=== PATIENT | female | born 1960 | race Caucasian/White ===

== ENCOUNTER → 2020-04-15 09:18 | Outpatient (BNVA) | payer OTHER, SELFPAY | PROVIDERS: PCP Student in an Organized Health Care Education/Training Program; Visit Provider Internal Medicine | DX: R07.2 Precordial pain (principal); I10 Essential (primary) hypertension; I49.3 Ventricular premature depolarization | CPT/HCPCS: 93005; 99202 ==

== ENCOUNTER → 2020-08-04 07:50 | Outpatient (REF) | payer OTHER, SELFPAY ==
--- NOTE | ~2020-08-04 | NM_ITS ---
Lexiscan Myocardial perfusion study Indication: Chest discomfort, assess for coronary disease and ischemia Technique: The patient was brought in for a Lexiscan perfusion study on 08/04/2020 and was injected 0.4 mg of Lexiscan intravenously. Within a minute of this injection 25 mCi of sestamibi was given intravenously. Images were obtained using the SPECT gamma camera interlaced with the gating device. Images were obtained in supine position. Resting perfusion study was performed on 08/05/2020. Patient was administered 25 mCi of sestamibi intravenously at rest. Images were then obtained in supine position. Total DLP 126mGy-cm. Images were processed with the software and compared side to side in short axis, horizontal long axis and vertical long axis views. Findings: Raw acquisition was reviewed. The stress perfusion study showed mildly diminished tracer uptake in the distal part of anterior wall. With CT attenuation correction, this is still persisting. The gated study shows normal LV systolic function with calculated LVEF of 62%. LV cavity is normal in size. The gated study shows normal wall thickening and contraction of segments. Resting study shows mildly diminished tracer uptake in the distal part of anterior wall. Similar appearance in the CT attenuation corrected images. Gating at rest reveals normal wall motion with ejection fraction at > 77%. The findings are consistent with no reversible defects. Mild fixed defect in the distal anterior wall suspected to be from soft tissue attenuation. NM/NM cardiolite stress test Impression: 1. Myocardial perfusion imaging study shows likely normal myocardial perfusion. No definitive evidence of any ischemia or infarction. 2. Gated LVEF is 62% during stress and > 70% during rest. 3. Transient ischemic dilatation not present. EKG component of the test reported separately.
--- NOTE | 2020-08-04 08:30 | CA_ITS ---
Acquisition Time: 2020-08-04 08:03:04 Total Exercise Time: 00:03:06 Test Indications: Dyspnea Medications: ASA LISINOPRIL Protocol: MAYITO Max HR: 136 BPM 85% of Pred: 159 BPM Max BP: 134/080 mmHG Max Work Load: 4.7 METS Exercise stress test with exercise 3 min 6 sec of Mayito protocol, without anginal symptoms, with knee pain and request to slow exercise. Treadmill placed in recovery and slowed to 1 MPH. Test changed to pharmacological stress test with Lexiscan injection, without anginal symptoms, with isolated PAC and PVC, with inverted P waves post injection, with normotensive response to injection, with nondiagnostic EKG for ischemia. In recovery she reported shortness of breath that was treated with Aminophylline 75mg IVP to reverse Lexiscan with improvement in symptom. Nuclear images pending. Test reviewed with Dr Rosario. Referred By: Charly Cruz Overread By: TAMMY PENA
== END ==
LOC: HO.CARD 07:50
PROVIDERS: Visit Provider Internal Medicine
DX: R07.2 Precordial pain (principal); R06.02 Shortness of breath
CPT/HCPCS: 78452; 93017; A9500; J0280; J2785

== ENCOUNTER → 2020-10-20 08:41 | Outpatient (BNVA) | payer OTHER, SELFPAY | PROVIDERS: PCP Student in an Organized Health Care Education/Training Program; Visit Provider Internal Medicine | DX: I49.3 Ventricular premature depolarization (principal); I10 Essential (primary) hypertension; R07.2 Precordial pain | CPT/HCPCS: 99212 ==

== ENCOUNTER 2020-12-29 08:19 | Outpatient (REF) | payer OTHER, SELFPAY ==
--- NOTE | ~2020-12-29 | XR_ITS ---
EXAMINATION: XR KNEES, STANDING AP XR KNEE, LEFT CLINICAL INFORMATION: M25.562 - Pain in left knee COMPARISON: Standing AP knees 12/11/2018, right knee 12/11/2018. TECHNIQUE: Standing AP knees is performed along with lateral view and axial patella view left knee. FINDINGS: Left: No fracture or dislocation or destructive process. There is borderline narrowing medial compartment. No erosive change or chondrocalcinosis. There is moderate suprapatellar effusion. Mild edema suggested in Hoffa's fat pad with poorly defined infrapatellar fat pad. Axial view shows no patellofemoral joint narrowing or lateralization left patella. Right: No fracture or dislocation or destructive process. There is mild narrowing medial compartment with marginal osteophytes femoral condyle and tibial plateau. Narrowing greater than that on the left. No erosive change or chondrocalcinosis. XR/XR knee standing BI IMPRESSION: Left: Mild narrowing medial compartment. Moderate suprapatellar effusion. Edema Hoffa's fat pad. Right: Narrowing medial compartment greater than that on left. No erosive change.
--- NOTE | ~2020-12-29 | XR_ITS ---
EXAMINATION: XR KNEES, STANDING AP XR KNEE, LEFT CLINICAL INFORMATION: M25.562 - Pain in left knee COMPARISON: Standing AP knees 12/11/2018, right knee 12/11/2018. TECHNIQUE: Standing AP knees is performed along with lateral view and axial patella view left knee. FINDINGS: Left: No fracture or dislocation or destructive process. There is borderline narrowing medial compartment. No erosive change or chondrocalcinosis. There is moderate suprapatellar effusion. Mild edema suggested in Hoffa's fat pad with poorly defined infrapatellar fat pad. Axial view shows no patellofemoral joint narrowing or lateralization left patella. Right: No fracture or dislocation or destructive process. There is mild narrowing medial compartment with marginal osteophytes femoral condyle and tibial plateau. Narrowing greater than that on the left. No erosive change or chondrocalcinosis. XR/XR knee LT 2V IMPRESSION: Left: Mild narrowing medial compartment. Moderate suprapatellar effusion. Edema Hoffa's fat pad. Right: Narrowing medial compartment greater than that on left. No erosive change.
== END 2020-12-29 08:20 | disposition home or self-care (01) ==
LOC: HO.HOSX 08:19
PROVIDERS: Visit Provider Physician Assistant
DX: M17.12 Unilateral primary osteoarthritis, left knee (principal); M25.561 Pain in right knee; M25.462 Effusion, left knee
CPT/HCPCS: 20610; 73560; 73565; 99212; J1100

== ENCOUNTER 2021-01-26 10:00 | Outpatient (RCR) | payer OTHER, SELFPAY ==
--- NOTE | 2020-12-31 13:02 | MHC.PT.EP ---
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 REPORTS LONG HX OF KNEE PAIN WITH INCREASEING PAIN OVER LAST FEW MONTHS. Pt PRESENTS TO PT WITHOUT AD WITHOUT SIGNIF LIMP. SOME DECREASED END RANGE KNEE FLEXION B WITH PAIN REPORTED IN KNEE JTS. Pt HAD L KNEE ASPIRATED WITH INJECTION WHILE AT [facility] WITH REPORT OF RELIEF. 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 SHE DOES NOT DRIVE. SHOULD BENEFIT FROM PT TO HELP INCREASE LE STRENGTH AND FLEXIBILITY TO HELP ALLEVIATE PAIN. Pt REPORTS RELIEF WITH KT Frequency and Duration: The patient will be seen 2X/WK X 4 WKS Short Term Goals: 1. INCREASED AWARENESS KNEE CARE 2. I HEP WITH DC EX PLAN Custodial Goals: 1. INCREASED KNEE FLEX 5 DEGREES B 2. DECREASED KNEE PAIN AT LEAST 50% WITH ADLS Treatment Plan: Modalities to reduce pain, spasms and effusion. Manual therapy to restore motion and function. Therapeutic exercise to improve strength and flexibility. Neuromuscular re-education for posture and balance. Therapeutic activities to return to functional activities of daily living. Electronically signed by: SANDRA RODRIGUEZ PT Please sign and return to therapist. Thank you for your referral.
--- NOTE | 2021-02-11 14:14 | MHC.PT.DC ---
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 PER ASSESSMENT BY GUSTAVO PEACOCK PT ON THAT DATE:'Pt reports relief with ice and stated is feeling good about I HEP. Stated going away on vacation ? today - being last day' Electronically signed by: SANDRA RODRIGUEZ PT Please sign and return to therapist. Thank you for your referral.
== END 2021-02-11 14:15 | disposition home or self-care (01) ==
LOC: HO.PTWFD 10:00
PROVIDERS: PCP Student in an Organized Health Care Education/Training Program; Visit Provider Orthopaedic Surgery
DX: M25.462 Effusion, left knee (principal); M17.12 Unilateral primary osteoarthritis, left knee
CPT/HCPCS: 97014; 97110; 97116; 97140; 97162; 97530; 97535

== ENCOUNTER 2022-04-10 07:48 | Emergency (ER) | payer OTHER, SELFPAY ==
--- NOTE | ~2022-04-10 | CT_ITS ---
EXAMINATION: CT ABDOMEN AND PELVIS WITHOUT CONTRAST CLINICAL INFORMATION: Question kidney stone COMPARISON: None TECHNIQUE: Multidetector volumetric imaging was performed from the superior aspect of the liver through the pubic symphysis. Sagittal and coronal reformatted images were obtained on the technologist's workstation. This CT examination was performed using dose optimization techniques as appropriate, variously including the following: *Automated exposure control *Adjustment of mA and/or kV according to patient size (this includes techniques or standardized protocols for targeted exams where dose is matched to indication/reason for exam; i.e. extremities or head) *Use of iterative reconstruction technique DLP: 598 mGy-cm FINDINGS: Visualized lung bases demonstrate mild dependent atelectasis. The liver is normal in size but demonstrates diffusely decreased attenuation. The gallbladder is normal in appearance. The pancreas and adrenal glands are normal in appearance. Small calcified granuloma within the spleen. Symmetrically sized kidneys. No renal calculi or hydronephrosis of either kidney. Tiny hiatal hernia. Normal caliber loops of small and large bowel. Normal caliber abdominal aorta. No retroperitoneal lymphadenopathy. The bladder is normal in appearance. Unremarkable CT appearance of the uterus. No gross free pelvic fluid. No inguinal lymphadenopathy. Mild diffuse degenerative changes of the spine. Partially visualized lipoma within the right tensor fasciae latae muscle. CT/CT abdomen pelvis wo IV con IMPRESSION: 1. No renal calculi or hydronephrosis of either kidney. 2. Diffusely decreased liver attenuation suggesting hepatic steatosis. Correlation with liver enzymes recommended. Fleischner guidelines were followed.
--- NOTE | ~2022-04-10 | XR_ITS ---
EXAMINATION: XR LUMBOSACRAL SPINE WITH OBLIQUES CLINICAL INFORMATION: Atraumatic low back pain for 3 to 4 days. COMPARISON: None TECHNIQUE: 5 views of the lumbar spine were obtained. FINDINGS: 5 nonrib-bearing lumbar vertebral bodies are visualized. Normal alignment. Lumbar vertebral body heights are maintained. There is mild to moderate narrowing of the L5/S1 disc space height. Tiny osteophytes are scattered throughout the lumbar spine. Mild degenerative changes of the posterior elements of the lower lumbar spine. Sacroiliac joints are symmetric. 3 mm nodular density projecting over the left renal shadow possibly represents a left renal calculus. XR/XR lumbar spine 4V min IMPRESSION: 1. Mild degenerative changes of the lower lumbar spine. No compression deformity. 2. Possible 3 mm left renal calculus.
[2022-04-10 07:56] VITALS: BP 159/86; PULSE 77; RESP 18; TEMP 35.8; O2SAT 96; BMI 34.0
--- NOTE | 2022-04-10 08:13 | ED_ITS ---
HPI - Back Pain/Injury General Chief Complaint: Back Pain/Injury Stated Complaint: back pain Time Seen by Provider: 04/10/22 08:01 Source: patient and family ( and daughter) Mode of arrival: ambulatory Limitations: language barrier (Spanish-speaking pediatrics hospitalist used) History of Present Illness HPI Narrative: 61yoF who is Spanish-speaking pediatrics hospitalist used with a PMHx of HTN, PVCs and arthritis who is presenting to the ER with her and daughter with complaints of atraumatic lower back pain for the past 3-4 days worse today. She reports she has had back pain in the past and this feels similar to her back pain. Reports it is worse when she is laying down at night and trying to get out of bed. She denies any recent falls or trauma, any dizziness, changes in vision, jaw pain, chest pain or shortness of breath, palpitations, paresthesias, abdominal pain, flank pain, dysuria, hematuria, abnormal vaginal discharge, black or bloody stools, urinary bowel incontinence or retention, rashes, saddle anesthesias, radiation of the back pain or any other symptoms complaints or concerns at this time. MD elicited complaint: back pain Pertinent past history: prior back pain Onset (ago): day(s) (3-4 days ) Timing: constant Severity: mild Similar Symptoms Previously: Yes Quality: other (Cramping sensation) Location: lumbar spine Radiation: none Exacerbating factors: movement, supine positioning, walking and lifting Relieving factors: none Context: unknown Associated symptoms: denies other symptoms Work related injury: No Related Data Home Medications Medication Instructions Recorded Confirmed aspirin 81 mg tablet,delayed 81 mg PO DAILY 04/15/20 10/20/20 release lisinopril 40 mg tablet 40 mg PO DAILY 04/15/20 10/20/20 Previous Rx's Medication Instructions Recorded cyclobenzaprine 10 mg tablet 10 mg PO Q8H Muscle strain of back 04/10/22 #14 tabs naproxen 500 mg tablet 500 mg PO BID PRN pain #14 tabs 04/10/22 Allergies Allergy/AdvReac Type Severity Reaction Status Date / Time No Known Allergies Allergy Verified 10/20/20 08:56 [No Known Allergies*] Review of Systems Review of Systems: Constitutional : No trauma, No Weight loss, No Fever, No Chills, ENT/Mouth : No Hearing loss, No Ear Pain, No Nasal Congestion, No Sinus Pain, No Hoarseness, No sore throat, No Rhinorrhea, No Swallowing Difficulty Cardiovascular : No Chest Pain, No SOB Respiratory : No Cough, No Dyspnea Gastrointestinal : No Nausea, No Vomiting, No Diarrhea, No abdominal Pain, No Hematochezia, No Melena Genitourinary : No Dysuria, No Urinary Frequency, No Hematuria, No Urinary or Bowel Incontinence/retention Musculoskeletal : + Back pain, No neck pain, No joint stiffness, No joint swelling Skin : No Skin Lesions, No rash or signs of infection Neuro : No Weakness, No radiation, No Numbness, No Paresthesias, No headache, no loss of bowel or bladder incontinence, no saddle anesthesia Denies history of IV drug usage. Yes all other systems are reviewed and are negative [facility] Past Medical History Attestation statement: The following information was validated with the patient. Source: old records reviewed, obtained from family and nursing notes reviewed Medical History Essential hypertension Surgical History No pertinent past surgical history Family History Family History Father No problems noted. Mother No problems noted. Social History Social History Patient Tobacco Use Status: Never used Tobacco Advance Directives: No Advance Directives Information Provided: Yes Physical Exam Vital Signs: Vital Signs: Last Vital Signs Temp 96.5 F L 04/10/22 07:56 Pulse 77 04/10/22 07:56 Resp 18 04/10/22 07:56 BP 159/86 H 04/10/22 07:56 Pulse Ox 96 04/10/22 07:56 O2 Del Method Simple Mask 04/10/22 07:56 BMI result Body Mass Index 34.0 vital signs have been reviewed as normal and appeared to be correct. Blood pressure 159/86. Heart rate normal. Respiration rate normal. Temperature normal. Oxygen saturation normal. Appearance: Alert. Oriented X3. No acute distress. Head: Normal external exam. Normocephalic. Atraumatic. No [place] signs noted. No raccoon eyes noted Eyes: PERRLA. EOMI. Conjunctiva and sclera normal. Eyelids normal. ENT: EAC normal. TM's Normal. Pharynx normal. Uvula midline. Moist mucous membranes. No trismus noted. No drooling noted. No muffled voice noted. Neck: Normal inspection. Neck supple. FROM. No adenopathy. Thyroid Normal. No meningeal signs. No neck mass noted. CVS: Normal heart rate and rhythm. Heart sound normal. No murmurs noted. Pulses normal throughout. Respiratory: No respiratory distress. Painless inspiration. Breath sounds normal. No wheezes/rales/rhonchi noted. Chest nontender. No accessory muscle usage noted or decreased air movement noted. Abdomen: Soft and nontender. Bowel sounds normal in all 4 quadrants. No distention noted. No organomegaly noted. No visible injury noted. Back: No CVA tenderness. Full range of motion noted. No obvious deformities, or edema. Mild para-spinal muscular tenderness from lumbar region to coccyx. Full ROM in back and lower extremities. 5/5 strength hip extension/flexion, abduction, adduction. Mild Lumbar pain with hip flexion against resistance. Straight leg raise test negative on right; Straight leg raise test negative on left; Reflexes normal ankle and knee bilaterally; EHL motor strength normal bilaterally. No rashes/lesion/induration/fluctuance or signs infection noted. Skin: Skin warm and dry. Normal skin color. Normal skin turgor. No rashes/lesions/lacerations noted. Extremities: No lower extremity edema. Extremities exhibit normal range of motion. Extremities nontender. Neuro: Oriented X 3. No motor deficit. No sensory deficit. Reflexes normal. Patient has a normal steady gait. Course Course Course Narrative: Pt c likely muscular pain, but could be herniated disc. Neuro exam shows no defi cits. Not c/w AAA/epidural abscess/dissection.No high risk Hx (Incont, fever, immunosupp, recent surgery/LP, coag, signif trauma, wt loss, puls mass, hx/o Ca, TB, or IVDU) to warrant MRI/CT today. Not c/w Pyelo/UTI/kidney stone/spinal fx. Not cauda equina syndrome. Although will obtain x-ray of lower back and UA and re-evaluate. Reevaluation(s) Reevaluation #1: UA within normal limits no evidence of UTI. X-ray revealed degenerative changes of lumbar spine no compression deformity. Although they report possible 3 mm l eft renal calculus. Therefore at this time will obtain basic labs and obtain a CT scan abdomen pelv is without IV contrast and re-evaluate. Time: 08:55 Reevaluation #2: CT scan abdomen pelvis negative for any kidney stones. Revealed hepatic steatosis otherwise no other acute processes. Labs reviewed BUN 18. Random glucose 118. AST 46. ALT 72. Otherwise all other labs are within normal limits. Therefore patient most likely lumbar strain/muscular skeletal pain. Will DC home with muscle relaxants and symptomatic treatment instructions return if any new or worsening symptoms to follow up with primary care provider. Patient with daughter at bedside and understand agree this plan. Time: 10:17 Medical Decision Making Lab Data [facility] Lab Attestation statement: I reviewed the patient's lab results. 04/10/22 09:20 04/10/22 09:20 Labs: Lab Results 04/10/22 04/10/22 04/10/22 Range/Units 08:15 09:20 09:20 WBC 5.7 (4.8-10.8) X10*3/uL RBC 4.56 (4.20-5.50) X10*6/uL Hgb 14.1 (12.0-16.0) g/dl Hct 40.4 (37.0-47.0) % MCV 88.6 (80.0-98.0) fL MCH 30.9 (27.0-33.0) pg MCHC 34.9 (31.0-35.0) g/dl RDW 12.8 (11.0-16.0) % Plt Count 170 (160-400) X10*3/uL MPV 10.1 (9.4-12.3) fL Immature Gran % (Auto) 0.2 (0.0-0.4) % Neut % (Auto) 43.8 L (45-73) % Lymph % (Auto) 46.3 H (20-40) % Rush % (Auto) 7.8 (2-11) % Eos % (Auto) 1.7 (0-4) % Baso % (Auto) 0.2 (0-2) % Lymph # (Auto) 2.7 (1.2-4.9) X10*3/uL Rush # (Auto) 0.5 (0.1-1.2) X10*3/uL Eos # (Auto) 0.1 (0.0-0.4) X10*3/uL Baso # (Auto) 0.0 (0.0-0.2) X10*3/uL Abs Immat Gran (auto) 0.01 (0.00-0.03) X10*3/uL Absolute Neuts (auto) 2.5 (2.0-8.3) x10*3/uL Absolute Nucleated RBC 0.000 (0.0-0.012) X10*3/uL Nucleated RBC % (auto) 0.0 (0.0-0.2) /100WBC Sodium 141 (135-145) mmol/L Potassium 4.2 (3.3-5.1) mmol/L Chloride 107 (96-108) mmol/L Carbon Dioxide 26 (22-29) mmol/L Anion Gap 12 (12-20) BUN 18 H (9-16) mg/dL Creatinine 0.80 (0.5-1.4) mg/dL Estim Creat Clear Calc 66.9 Estimated GFR > 60 Random Glucose 118 H (60-115) mg/dL Calcium 9.2 (8.4-10.2) mg/dL Magnesium 2.2 (1.6-2.6) mg/dL Total Bilirubin 0.8 (0.0-1.0) mg/dL AST 46 H (5-31) U/L ALT 72 H (0-31) U/L Alkaline Phosphatase 80 (39-117) U/L Total Protein 6.8 (6.5-8.0) g/dL Albumin 3.9 (3.5-5.0) g/dL Urine Color Yellow Urine Appearance Clear Urine pH 7.0 (5.0-9.0) Ur Specific [place] <= 1.005 (1.005-1.025) Urine Protein Negative (Neg-Trace) mg/dL Urine Glucose (UA) Negative (Negative) mg/dL Urine Ketones Negative (Negative) mg/dL Urine Blood Negative (Negative) Urine Nitrite Negative (Negative) Ur Leukocyte Esterase Negative (Negative) Independent Interpretation I performed an independent interpretation of an: Plain X-Ray (I reviewed the lumbar spine x-ray I am agreeable with radiology results discussed this with patient and family at bedside) and CT Scan (I have reviewed the CT scan results discussed with family and I agreeable with the radiologist's report) Radiology Impression Discussion of test interpretation with radiology: I have reviewed the radiologist's reading. Radiologist Impression: EXAMINATION: XR LUMBOSACRAL SPINE WITH OBLIQUES CLINICAL INFORMATION: Atraumatic low back pain for 3 to 4 days.? COMPARISON: None? TECHNIQUE: 5 views of the lumbar spine were obtained.? FINDINGS: 5 nonrib-bearing lumbar vertebral bodies are visualized. Normal alignment. Lumbar vertebral body heights are maintained. There is mild to moderate narrowing of the L5/S1 disc space height. Tiny osteophytes are scattered throughout the lumbar spine. Mild degenerative changes of the posterior elements of the lower lumbar spine. Sacroiliac joints are symmetric. 3 mm nodular density projecting over the left renal shadow possibly represents a left renal calculus. XR/XR lumbar spine 4V min IMPRESSION: 1.? Mild degenerative changes of the lower lumbar spine. No compression deformity. 2.? Possible 3 mm left renal calculus. FINDINGS: Visualized lung bases demonstrate mild dependent atelectasis. The liver is normal in size but demonstrates diffusely decreased attenuation. The gallbladder is normal in appearance. The pancreas and adrenal glands are normal in appearance. Small calcified granuloma within the spleen. Symmetrically sized kidneys. No renal calculi or hydronephrosis of either kidney. Tiny hiatal hernia. Normal caliber loops of small and large bowel. Normal caliber abdominal aorta. No retroperitoneal lymphadenopathy. The bladder is normal in appearance. Unremarkable CT appearance of the uterus. No gross free pelvic fluid. No inguinal lymphadenopathy. Mild diffuse degenerative changes of the spine. Partially visualized lipoma within the right tensor fasciae latae muscle. CT/CT abdomen pelvis wo IV con IMPRESSION: 1.? No renal calculi or hydronephrosis of either kidney. 2.? Diffusely decreased liver attenuation suggesting hepatic steatosis. Correlation with liver enzymes recommended. ? Fleischner guidelines were followed. Independent Historian Clinical information obtained from an independent historian. History obtained from or confirmed by: Spouse (And daughter at bedside) External Record Review External record reviewed: Inpatient record, Office record, Outpatient record, Prior outpatient labs, Prior outpatient radiology, Primary care record and Outside ED record Are prior records that are in our system that is accessible reviewed by myself along with labs and imaging Prescription Management I considered prescription management with: Pain Medication (Will DC home with naproxen and Flexeril) Discharge Plan Discharge Clinical Impression: Strain of lumbar region Patient Disposition: Home, Self-Care Instructions: Muscle Strain (ED) Prescriptions: New naproxen 500 mg tablet 500 mg PO BID PRN (Reason: pain) Qty: 14 0RF cyclobenzaprine 10 mg tablet 10 mg PO Q8H Qty: 14 0RF No Action lisinopril 40 mg tablet 40 mg PO DAILY aspirin 81 mg tablet,delayed release (DR/EC) 81 mg PO DAILY Referrals: Kellen Murcia MD [Primary Care Provider] - 2 days
[2022-04-10 08:24] LABS: Appearance Urine Clear; Color Urine Yellow; Glucose Urine UA Negative (Negative); Leukocyte Esterase Urine Negative (Negative); Nitrite Urine Negative (Negative); Specific Gravity - Urine <= 1.005 (1.005-1.025); Urine Blood Negative (Negative); Urine Ketones Negative (Negative); Urine Protein Negative (Neg-Trace)
[2022-04-10 09:24] LABS: MANUAL DIFF FLAG NO
[2022-04-10 09:25] LABS: Basophils Percent Auto 0.2 % (0-2); Eosinophils Absolute Auto 0.1 X10*3/uL (0.0-0.4); Eosinophils Percent Auto 1.7 % (0-4); Hematocrit 40.4 % (37.0-47.0); Hemoglobin 14.1 g/dl (12.0-16.0); Imm Gran Abs Auto 0.01 X10*3/uL (0.00-0.03); Imm Gran Pct Auto 0.2 % (0.0-0.4); Lymphocytes Absolute Auto 2.7 X10*3/uL (1.2-4.9); Lymphocytes Percent Auto 46.3 % (20-40); Mean Corpuscular HGB Conc 34.9 g/dl (31.0-35.0); Mean Corpuscular Hemoglobin 30.9 pg (27.0-33.0); Mean Corpuscular Volume 88.6 fL (80.0-98.0); Mean Platelet Volume 10.1 fL (9.4-12.3); Monocytes Absolute Auto 0.5 X10*3/uL (0.1-1.2); Monocytes Percent Auto 7.8 % (2-11); Neutrophils Absolute Auto 2.5 x10*3/uL (2.0-8.3); Neutrophils Percent Auto 43.8 % (45-73); Platelet Count 170 X10*3/uL (160-400); Red Blood Count 4.56 X10*6/uL (4.20-5.50); Red Cell Distribution Width 12.8 % (11.0-16.0); White Blood Count 5.7 X10*3/uL (4.8-10.8)
[2022-04-10 09:40] LABS: Alanine Aminotransferase 72 U/L (0-31); Albumin Level 3.9 g/dL (3.5-5.0); Alkaline Phosphatase 80 U/L (39-117); Anion Gap 12 (12-20); Aspartate Amino Transferase 46 U/L (5-31); Bilirubin Total 0.8 mg/dL (0.0-1.0); Blood Urea Nitrogen 18 mg/dL (9-16); Calcium 9.2 mg/dL (8.4-10.2); Carbon Dioxide 26 mmol/L (22-29); Chloride 107 mmol/L (96-108); Creatinine Clr Calc Pharmacy 66.9; Estimated Glomerular Filt Rate > 60; Glucose Random 118 mg/dL (60-115); Magnesium 2.2 mg/dL (1.6-2.6); Potassium 4.2 mmol/L (3.3-5.1); Sodium 141 mmol/L (135-145); Total Protein 6.8 g/dL (6.5-8.0)
[2022-04-10 10:22] VITALS: BP 178/99; PULSE 64; RESP 16; O2SAT 96
== END 2022-04-10 10:33 | disposition home or self-care (01) ==
PROVIDERS: Physician Assistant Medical; Emergency Provider Emergency Medicine; PCP Student in an Organized Health Care Education/Training Program
DX: S39.012A Strain of muscle, fascia and tendon of lower back, initial encounter (principal); X58.XXXA Exposure to other specified factors, initial encounter; I10 Essential (primary) hypertension; Z79.82 Long term (current) use of aspirin; Z79.899 Other long term (current) drug therapy; Y93.9 Activity, unspecified; Y92.9 Unspecified place or not applicable; Y99.9 Unspecified external cause status
CPT/HCPCS: 36415; 72110; 74176; 80053; 81003; 83735; 85025; 99283; 99284

== ENCOUNTER 2023-01-14 10:03 | Outpatient (REF) | payer OTHER, SELFPAY ==
[2023-01-14 14:58] LABS: Alanine Aminotransferase 78 U/L (0-31); Albumin Level 3.9 g/dL (3.5-5.0); Alkaline Phosphatase 74 U/L (39-117); Aspartate Amino Transferase 55 U/L (5-31); Bilirubin Direct 0.3 mg/dL (0.0-0.5); Bilirubin Total 0.7 mg/dL (0.0-1.0); Total Protein 7.2 g/dL (6.5-8.0)
[2023-01-15 04:28] LABS: ~HepC Num1 15.38 S/CO (0.00-0.79); ~Hepatitis C Antibody Reactive (Nonreactive)
[2023-01-17 19:09] LABS: HIV RNA PCR Qn Copies Not Detected Copies/mL; HIV RNA PCR Qn Log Copies Not Detected Log cps/mL
[2023-01-18 18:35] LABS: HCV Log PCR 7.23 Log IU/mL (NOT DETECTED)
== END 2023-01-14 10:04 | disposition home or self-care (01) ==
LOC: HO.CHCLDS 10:03
PROVIDERS: Visit Provider Student in an Organized Health Care Education/Training Program
DX: Z11.4 Encounter for screening for human immunodeficiency virus [HIV] (principal); R74.8 Abnormal levels of other serum enzymes
CPT/HCPCS: 36415; 80076; 86803; 87522; 87536; 87900

== ENCOUNTER 2023-02-01 08:58 | Outpatient (REF) | payer OTHER, SELFPAY ==
[2023-02-01 14:10] LABS: MANUAL DIFF FLAG NO
[2023-02-01 14:14] LABS: Basophils Percent Auto 0.4 % (0-2); Eosinophils Absolute Auto 0.1 X10*3/uL (0.0-0.4); Eosinophils Percent Auto 1.4 % (0-4); Hematocrit 40.9 % (37.0-47.0); Imm Gran Abs Auto 0.01 X10*3/uL (0.00-0.03); Imm Gran Pct Auto 0.2 % (0.0-0.4); Lymphocytes Absolute Auto 2.3 X10*3/uL (1.2-4.9); Lymphocytes Percent Auto 44.8 % (20-40); Mean Corpuscular HGB Conc 34.2 g/dl (31.0-35.0); Mean Corpuscular Hemoglobin 30.6 pg (27.0-33.0); Mean Corpuscular Volume 89.3 fL (80.0-98.0); Mean Platelet Volume 10.5 fL (9.4-12.3); Monocytes Absolute Auto 0.4 X10*3/uL (0.1-1.2); Monocytes Percent Auto 8.4 % (2-11); Neutrophils Absolute Auto 2.3 x10*3/uL (2.0-8.3); Neutrophils Percent Auto 44.8 % (45-73); Platelet Count 198 X10*3/uL (160-400); Red Blood Count 4.58 X10*6/uL (4.20-5.50)
[2023-02-01 14:19] LABS: INTERNATIONAL NORM RATIO 0.9 (0.9-1.1); Prothrombin Time 11.2 SEC (11.1-13.3)
[2023-02-01 14:21] LABS: Estimated Glomerular Filt Rate > 60
[2023-02-02 08:13] LABS: HBS Num1 0.53 mIU/mL (0-7.99); HBc Num1 0.09 S/CO (0.00-0.79); HBsAGNum1 0.31 S/CO (0.00-0.99); HIV AB/AG Nonreactive (Nonreactive); HIV Num 1 0.05 S/CO (0.00-0.99); Hepatitis B Core Antibody Nonreactive (Nonreactive); Hepatitis B Surface Antigen Negative (Negative); ~Hepatitis B Surface Antibody NONREACTIVE (Nonreactive)
[2023-02-02 08:16] LABS: Hepatitis A Antibody IgG REACTIVE (Nonreactive); ~Hepatitis A Antibody IgG 10.55 S/CO (0.00-0.99)
[2023-02-05 13:28] LABS: Hepatitis C Genotype 1b
[2023-02-08 15:19] LABS: FIB-ALT 81 U/L (6-29); FIB-Alpha-2-Macroglobulin 255 mg/dL (106-279); FIB-Apolipoprotein A1 164 mg/dL (101-198); FIB-GGT 41 U/L (3-65); FIB-Haptoglobin 84 mg/dL (43-212); FIB-Total Bilirubin 0.5 mg/dL (0.2-1.2); Liver Fibrosis Score 0.38; Liver Fibrosis Stage F1-F2; Nec Inflam Act Grade A1-A2; Nec Inflam Act Score 0.51
== END 2023-02-01 08:59 | disposition home or self-care (01) ==
LOC: HO.CHCLDS 08:58
PROVIDERS: Visit Provider Student in an Organized Health Care Education/Training Program
DX: Z11.4 Encounter for screening for human immunodeficiency virus [HIV] (principal); B18.2 Chronic viral hepatitis C
CPT/HCPCS: 36415; 81596; 82565; 85025; 85610; 86704; 86706; 86708; 87340; 87389; 87902

== ENCOUNTER 2023-10-18 09:50 | Outpatient (REF) | payer OTHER, SELFPAY ==
[2023-10-18 11:37] LABS: Alanine Aminotransferase 19 U/L (0-31); Alkaline Phosphatase 55 U/L (39-117); Aspartate Amino Transferase 18 U/L (5-31); Bilirubin Direct 0.2 mg/dL (0.0-0.5); Bilirubin Total 0.5 mg/dL (0.0-1.0); Total Protein 7.1 g/dL (6.5-8.0)
[2023-10-18 11:55] LABS: Syphilis Screen Nonreactive (Nonreactive)
[2023-10-19 15:23] LABS: HCV Log PCR <1.18 NOT DETECTED Log IU/mL (NOT DETECTED); HepC Viral Load <15 NOT DETECTED IU/mL (NOT DETECTED)
== END 2023-10-18 09:51 | disposition home or self-care (01) ==
LOC: HO.HHCL 09:50
PROVIDERS: Visit Provider Family Medicine
DX: B18.2 Chronic viral hepatitis C (principal); R21 Rash and other nonspecific skin eruption
CPT/HCPCS: 36415; 80076; 86780; 87522

== ENCOUNTER 2024-01-10 09:54 | Outpatient (REF) | payer MEDICARE, MEDICAID, SELFPAY ==
--- NOTE | ~2024-01-10 | XR_ITS ---
EXAMINATION: XR CHEST CLINICAL INFORMATION: cough x 10 days COMPARISON: None available. TECHNIQUE: 2 views of the chest were obtained. FINDINGS: The lungs are clear. The cardiomediastinal silhouette is normal in size. There is no pleural effusion or pneumothorax. No acute osseous abnormality. XR/XR chest 2V IMPRESSION: No acute cardiopulmonary findings. Electronically signed by: Carlos Eduardo Chun MD 01/12/2024 09:39 AM [facility] [place]
== END 2024-01-10 09:55 | disposition home or self-care (01) ==
LOC: HO.XRAY 09:54
PROVIDERS: PCP Student in an Organized Health Care Education/Training Program; Visit Provider Internal Medicine
DX: R05.1 Acute cough (principal)
CPT/HCPCS: 71046

== ENCOUNTER 2024-06-07 09:49 | Outpatient (REF) | payer MEDICARE, MEDICAID, SELFPAY ==
--- OUTSIDE RECORDS SUMMARY | 2024-06-07 10:57 | XMS_ITS | Encounter Summary ---
Author Organization [employer] Address [address] [facility] 7t [place] [address] Care Team Providers Care Nutritional Assistant Name Role Phone Kellen Murcia MD Primary Care Provider [phone] Reason for Referral * Imaging (Routine) - Closed Specialty Diagnoses / Procedures Referred By Gustavo canales Referred To Contact Radiology Diagnoses Breast screening Procedures BI Mammogram Screening Bilateral Kellen Murcia MD [address] [place] [address] Phone: tel: fax: [facility] [address] [place] [address] Phone: tel: fax: Referral ID Status Reason Start Date Expiration Date Visits Re quested Visits Authorized [id number] Closed 07/23/2022 07/23/2023 1 1 Encounter Details Date Type Department Care Team ([facility] st Contact Info) Description 07/23/2022 Orders Only [facility] CHC MED & PEDS [address] [place] [address] Kellen Murcia MD [address] [place] [address] Breast screening (Primary Dx) Social History Tobacco Use Types Packs/Day Years Used Date Smoking Tobacco: Never Smokeless Tobacco: Never Alcohol Use Standard Drinks/Week Comments Never 0 (1 standard drink = 0.6 oz pur e alcohol) Depression Answer Date Recorded Patient Health Questionnaire-2 Score 0 07/01/2022 Comments No Sex and Gender Information Value Date Recorded Sex Assigned at Female 12/07/2021 10:25 AM EDT Legal Sex Female 10:25 AM EDT Gender Identity Choose not to disclose 2 10:25 AM EDT Sexual Orientation Choose not to disclose 2021 10:25 AM EDT COVID-19 Exposure Response Date Recorded In the last 10 days, have yo u been in contact with someone who was confirmed or suspected to have Coronavirus/COVID-19? No / Unsure 07/01/2022 8:24 AM EDT documented as of this encounter Plan of Treatment Upcoming Encounters Date Type Department Care Team (Late st Contact Info) Description 08/13/2024 10:00 AM EDT Clinical Support [facility] MED & PEDS [address] [place] [address] Scheduled Orders Name Type Priority Associated Diagnoses Orde r Schedule BI Mammogram Screening Bilateral Imaging Routine Breast screening Expected: 07/23/2022, Expires: 09/23/2023 documented as of this encounter Visit Diagnoses Diagnosis Breast screening- Primary Breast screening, unspecified documented in this encounter Care Teams Nutritional Assistant Relationship Specialty Start Date End Date Kellen Murcia MD [address] [place] [id number] PCP - General Family Medicine 02/07/18 documented as of this encounter
--- OUTSIDE RECORDS SUMMARY | 2024-06-07 10:57 | XMS_ITS | Clinical Summary ---
Author Organization [email or web address] Address [address] [facility] 7t [place] [address] Care Team Providers Care Microbiology Teacher Name Role Phone Kellen Murcia MD Primary Care Provider [phone] Allergies No known active allergies Medications aspirin (Scarlet Low Dose) 81 MG EC tablet Take 1 tablet by mouth 1 (one) time each day. 3 Active Calcium Carb-Cholecalci ferol 600-10 MG-MCG tablet Take 1 tablet by mouth 1 (one) time each day. 8 Active omega-3 (Fish Oil) 1000 MG capsule Take 340-1,000 mg by mouth 1 (one) time each day. Take 340-1,000 mg by mouth 1 (one) time each day. 3 Active Elastic Bandages & Supports (Wrist Splint) misc Wear as directed at work and to sleep 5 Active Glecaprevir-Pib rentasvir (Mavyret) 100-40 MG tabletIndicatio ns:Chronic hepatitis C without hepatic coma (CMS/HCC) Take 3 tablets by mouth in the morning. 84 tablet 1 4 Active ivermectin (Stromectol) 3 MG tabletIndicatio ns:Rash Take 5 pills PO x 1 1 tablet 4 Active triamcinolone (Kenalog) 0.1 % creamIndication s:Rash Apply topically if needed in the morning and at bedtime (pain and swelling). 80 g 3 4 Active hydrOXYzine HCl (Atarax) 25 MG tabletIndicatio ns:Pruritus,Fol liculitis Take 1 tablet (25 mg) by mouth if needed in the morning, at noon, and at bedtime for itching. 90 tablet 3 4 Active cetirizine (ZyrTEC) 10 MG tablet Take 1 tablet (10 mg) by mouth Once per day. 30 tablet 5 4 07/22/19 25 Active lisinopril 40 MG tablet Take 1 tablet (40 mg) by mouth in the morning. 90 tablet 3 4 Active hydroCHLOROthia zide (HYDRODiuril) 25 MG tablet Take 1 tablet (25 mg) by mouth Once per day. 30 tablet 11 4 01/23/20 25 Active Active Problems Problem Noted Date Diagnosed Date Rash 05/05/2023 Assessment & Plan (05/05/2023 3:54 PM EDT): Pt is here as a sick visit with c/o itching all over her body that started 2 weeks ago on 04/20 started on her feet and has moved up the her body, legs, arms, chest, and back. Pt reports that she is the most itchy at night. Pt had gone to a sauna in [place] on 04/15. Denies any other symptoms. She states her has same symptoms as well. On exam she has signs of scratching and excoriations on her legs, arms, axillae, and abdomen Symptoms and exam highly suggestive of Scabies Instructed to stop using a cream she had been using for over 2 months Asked to hire an director of strategic communications to come to her house Start Ivermectin 3 mg tablets take 5 tabs po x 1 ( calculated dose with a weight 80 kg ) (Prescribed fluff cream ( ceraVe plus Triamcinolone ) Follow up with PCP in 1 week to assess progress Pt's to be scheduled to be seen as well soon H/O transfusion of whole blood 01/14/2023 Hypertensive disorder 11/19/2013 Hypercholesterolemia 11/19/2013 Encounters Date Type Department Care Team Description 06/07/2024 9:00 AM EDT Office Visit [facility] CHC MED & PEDS [address] [place] [address] Kellen Murcia MD Primary hypertension (Primary Dx); Hypercholesterolemia; Hep C w/o coma, chronic (CMS/HCC); H/O transfusion of whole blood; Encounter for screening for malignant neoplasm of colon; Encounter for screening mammogram for breast cancer 06/07/2024 Travel from Last 3 Months Immunizations Name Administration Dates Next Due Hep B, adult 12/03/2014,10/29/2014 Influenza injectable quadriv alent IIV4 with preservative 12/03/2014 Influenza, IIV3, injectable 11/19/2013 Influenza, Split (incl. purified surface antigen ) 12/15/2012 Tdap 04/29/2017 Social History Tobacco Use Types Packs/Day Years Used Date Smoking Tobacco: Never Smokeless Tobacco: Never Tobacco Cessation:Counseling Given: Not Answered Alcohol Use Standard Drinks/Week Comments Never 0 (1 standard drink = 0.6 oz pur e alcohol) Housing Stability Answer Date Recorded What is your housing situation today? Not on karishma e 06/07/[address] you li ve. Do you have problems with any of the following? None of the above 06/07/2024 Food Insecurity Answer Date Recorded Within the past 12 months, y ou worried that your food would run out before you got money to buy more: Never True 06/07/2024 Within the past 12 months,th e food you bought just didn't last and you didn't have enough money to get more: Never True 02/2024 Transportation Answer Date Recorded In the past 12 months, has l ack of transportation kept you from medical appts, meetings, work or from getting things needed for daily living? No 06/07/2024 Utilities Answer Date Recorded In the past 12 months, has t he electric, gas, oil or water company threatened to shut off services in your home? No 06/07/2024 Depression Answer Date Recorded Patient Health Questionnaire-2 Score 0 07/01/2022 Internet Access Answer Date Recorded Internet Access Q1 Yes 06/07/2024 Internet Access Q2 Not on file 06/07/2024 Comments No Sex and Gender Information Value Date Recorded Sex Assigned at Female 12/07/2021 10:25 AM EDT Legal Sex Female 10:25 AM EDT Gender Identity Choose not to disclose 10:25 AM EDT Sexual Orientation Choose not to disclose 2021 10:25 AM EDT Last Filed Vital Signs Vital Sign Reading Time Taken Comments Blood Pressure 175/95 06/07/2024 9:07 AM EDT Pulse 65 06/07/2024 9:07 AM EDT Temperature 36.6 ??C (97.8 ??F) 06/07/2024 9:07 AM ED T Respiratory Rate 14 06/07/2024 9:07 AM EDT Oxygen Saturation 98% 06/07/2024 9:07 AM EDT Inhaled Oxygen Concentration - - Weight 80.7 kg (178 lb) 06/07/2024 9:07 AM EDT Height 147.3 cm (4' 10 ) 06/07/2024 9:07 AM EDT Body Mass Index 37.2 06/07/2024 9:07 AM EDT Plan of Treatment Upcoming Encounters Date Type Department Care Team (Late st Contact Info) Description 08/13/2024 10:00 AM EDT Clinical Support [facility] MED & PEDS [address] [place] [address] Health Maintenance Due Date Last Done Comments CT Colonography 1958 Colonoscopy 1958 FIT DNA/Cologuard 1958 FIT 1958 FOBT 1958 Sigmoidoscopy 1958 Alcohol/Substance Use Screening 1970 Hepatitis A Vaccines (1 of 2 - Risk 2-dose series) 1977 Pap Smear 08/20/1979 Mammogram 1998 Zoster Vaccines (1 of 2) 2008 Hepatitis B Vaccines (3 of 3 - Risk 3-dose series) 04/29/2015 12/03/2014, 10/29/2014 RSV Patients and Patients Aged 60 years or older (1 - Risk 60-74 years 1-dose series) 2018 Cervical Cancer Screening 04/06/2021 HPV/Cotest 04/06/2021 04/06/2016 Depression Screening 07/02/2023 07/01/2022, 07/01/2022 SDOH Screening 07/02/2023 07/01/2022 COVID-19 Vaccine (1 - 2023-2 5 season) 2023 Influenza Vaccine (#1) 2024 5, 11/19/2013, 12/15/2012 Postponed from 10/09/2023 (Patient Refused) Tobacco Screening 01/08/2025 01/09/2024 Colorectal Cancer Screening 06/07/2025 Postponed from 1960 (Patient Refused) Pneumococcal Vaccine: 50+ Years (1 of 2 - PCV) 06/07/2025 Postponed from 08/07 (Patient Refused) DTaP/Tdap/Td Vaccines (2 - T d or Tdap) 04/30/2027 04/29/2017 Lipid Panel 07/08/2027 07/07/2022, 01/19/2021 HIB Vaccines Aged Out No longer eligi ble based on patient's age to complete this topic HPV Vaccines Aged Out No longer eligi ble based on patient's age to complete this topic IPV Vaccines Aged Out No longer eligi ble based on patient's age to complete this topic Meningococcal Vaccine Aged Out No vicente stephane eligible based on patient's age to complete this topic RSV under 20 months Aged Out No longe r eligible based on patient's age to complete this topic Rotavirus Vaccines Aged Out No longer eligible based on patient's age to complete this topic Procedures Procedure Name Priority Date/Time Associated Diagnosis Comments LIPID PANEL, STANDARD Routine 07/07/2022 8:51 AM EDT Primary hypertension ZZZ HISTORICAL HPV MRNA E6/E7 Routine 04/06/2016 2:15 PM EST from Last 3 Months or Most Recently Relevant to Health Maintenance Results * (ABNORMAL) Lipid Panel, Standard (07/07/2022 8:51 AM EDT) Cholesterol, Total 191 <200 mg/dL [facility] HDL Cholesterol 58 > OR = 50 mg/dL [facility] Triglycerides 74 <150 mg/dL [facility] LDL Cholesterol 116(H) mg/dL (calc) [facility] Comment: Reference range: <100 Desirable range <100 mg/dL for primary prevention; ?? <70 mg/dL for patients with CHD or diabetic patients with > or = 2 CHD risk factors. LDL-C is now calculated using the Eloina calculation, which is a validated novel method providing better accuracy than the Friedewald equation in the estimation of LDL-C. Wayne ESPANA et al. BEHZAD. 2013;310(19): 4020-1353 (http://education.Picatcha/faq/HHP893) Chol/HDLC Ratio 3.3 <5.0 (calc) [facility] Non-HDL Cholesterol 133(H) <130 mg/dL (calc) [facility] Comment: For patients with diabetes plus 1 major ASCVD risk factor, treating to a non-HDL-C goal of <100 mg/dL (LDL-C of <70 mg/dL) is considered a therapeutic option. Blood Venous blood specimen / Unknown 07/07/2022 8:51 AM EDT 07/07/2022 8:51 AM EDT Narrative [facility] - 07/08/2022 4:13 AM EDT FASTING:YES FASTING: YES us Kellen Murcia MD LAB BLOOD ORDERABLES Final Resul t [facility] [address], [place] [address] [facility] [address] [place] [address] * HPV mRNA E6/E7 (04/06/2016 2:15 PM EST) HPV mRNA E6/E7 Not Detected NOT DETECTED [facility] Comment: This test was performed using the APTIMA(R) HPV Assay ([employer] This assay detects E6/E7 viral messenger RNA (mRNA) from 14 high-risk HPV types (16,18,31,33,35,39,45,51, 52,56,58,59,66,68). For additional information please refer to: http://education.PandoDaily/faq/CAN580d3 (This link is being provided for informational/ educational purposes only.) Test Performed by [facility], [facility], [address] [place] [address] Dax Qursehi M.D., Ph.D., Director of Laboratories , CLIA [id number] Please note: ??Effective 10/20/2015, HPV testing will be performed using [employer]'s APTIMA test which targets mRNA. Detecting mRNA instead of DNA, as in older methods, offers significant improvements in specificity. 04/06/2016 2:15 PM EST us Emili Frazier CNM HISTORICAL/NON ORDERABLE LABS Final Result [facility] [address] from Last 3 Months or Most Recently Relevant to Health Maintenance Insurance [place] [address] [place] [phone] [facility] Care Teams Microbiology Teacher Relationship Specialty Start Date End Date Kellen Murcia MD [address] [place] [phone] PCP - General Family Medicine 02/07/18
--- OUTSIDE RECORDS SUMMARY | 2024-06-07 10:57 | XMS_ITS | Encounter Summary ---
Author Organization [employer] Address [address] [facility] [address] 7[address] [place] [address] Care Team Providers Care Middle School Music Teacher Name Role Phone Kellen Murcia MD Primary Care Provider Reason for Visit * Reason Onset Date Comments Nurse Triage 01/09/2024 Encounter Details Date Type Department Care Team ([facility] st Contact Info) Description 01/09/2024 Telephone [facility] MEDICINE [address] [place] [address] Kellen Murcia MD [address] [place], [place] [id number] Nurse Triage Social History Tobacco Use Types Packs/Day Years Used Date Smoking Tobacco: Never Smokeless Tobacco: Never Alcohol Use Standard Drinks/Week Comments Never 0 (1 standard drink = 0.6 oz pur e alcohol) Housing Stability Answer Date Recorded What is your housing situation today? I have soledadandie quinonez 12/18/[address] you li ve. Do you have problems with any of the following? None of the above 12/18/2022 Food Insecurity Answer Date Recorded Within the past 12 months, y ou worried that your food would run out before you got money to buy more: Never True 12/18/2022 Within the past 12 months,th e food you bought just didn't last and you didn't have enough money to get more: Never True 12/2022 Transportation Answer Date Recorded In the past 12 months, has l ack of transportation kept you from medical appts, meetings, work or from getting things needed for daily living? No 12/18/2022 Utilities Answer Date Recorded In the past 12 months, has t he electric, gas, oil or water company threatened to shut off services in your home? No 12/18/2022 Depression Answer Date Recorded Patient Health Questionnaire-2 Score 0 07/01/2022 Comments No Sex and Gender Information Value Date Recorded Sex Assigned at Female 12/07/2021 10:25 AM EDT Legal Sex Female 10:25 AM EDT Gender Identity Choose not to disclose 10:25 AM EDT Sexual Orientation Choose not to disclose 2021 10:25 AM EDT documented as of this encounter Miscellaneous Notes * Telephone Encounter - Idania Kat RN - 01/09/2024 11:50 AM EST Triage call to Pt daughter Salome. Daughter informs triager that Pt has already left for [facility] to be seen by provider. Triage ended. Protocol Used: No Contact or Duplicate Contact Call (Adult) Protocol-Based Disposition: No Contact Call Positive Triage Question: * Patient already left for the hospital/clinic * All higher-acuity triage questions were negative Care Advice Discussed: * Note to Triager - No Contact Calls * Telephone Encounter - Luís Lowery - 01/09/2024 11:18 AM EST Symptom: Cough Outcome: Schedule an appointment to be seen within 24 hours Reason: Caller denied all higher acuity questions documented in this encounter Plan of Treatment Upcoming Encounters Date Type Department Care Team (Late st Contact Info) Description 08/13/2024 10:00 AM EDT Clinical Support [facility] MED & PEDS [address] [place] [address] documented as of this encounter Visit Diagnoses Not on filedocumented in this encounter Care Teams Middle School Music Teacher Relationship Specialty Start Date End Date Kellen Murcia MD [address] [place] [phone] PCP - General Family Medicine 02/07/18 documented as of this encounter
--- OUTSIDE RECORDS SUMMARY | 2024-06-07 10:57 | XMS_ITS | Encounter Summary ---
Author Organization [employer] Address [address] [facility] 7t [place] [address] Care Team Providers Care Commercial Makeup Artist Name Role Phone Kellen Murcia MD Primary Care Provider [phone] Reason for Referral * Imaging (Routine) - Closed Specialty Diagnoses / Procedures Referred By Gustavo canales Referred To Contact Radiology Diagnoses Encounter for screening mammogram for breast cancer Procedures BI Mammogram Screening Tomosynthesis Bilateral Kellen Murcia MD [address] [place] [address] Phone: tel: fax: [address] Phone: tel: fax: Referral ID Status Reason Start Date Expiration Date Visits Re quested Visits Authorized [id number] Closed 06/07/2024 06/07/2025 1 1 * Consultation (Routine) - Pending Review Specialty Diagnoses / Procedures Referred By Gustavo canales Referred To Contact Gastroenterology Diagnoses Encounter for screening for malignant neoplasm of colon Kellen Murcia MD [address] [place] [address] Phone: tel: fax: Referral ID Status Reason Start Date Expiration Date Visits Requested Visits Authorized [id number] Pending Review Specialty Services Required 06/07/2024 06/07/2025 1 1 Reason for Visit * Reason Comments Follow-up Adult care Encounter Details Date Type Department Care Team (Late st Contact Info) Description 06/07/2024 9:00 AM EDT Office Visit [facility] CHC MED & PEDS [address] [place] [address] Kellen Murcia MD [address] [place] [address] Primary hypertension (Primary Dx); Hypercholesterolemia; Hep C w/o coma, chronic (CMS/HCC); H/O transfusion of whole blood; Encounter for screening for malignant neoplasm of colon; Encounter for screening mammogram for breast cancer Social History Tobacco Use Types Packs/Day Years [...] AM EDT documented as of this encounter Last Filed Vital Signs Vital Sign Reading [...] Mass Index 37.2 06/07/2024 9:07 AM EDT documented in this encounter Progress Notes * Kellen Murcia MD - 06/07/2024 9:00 AM EDT Subjective Patient ID: Priyanka Rios is a 63 y.o. adult who presents for No chief complaint on file.. Hypertension This is a chronic problem. The current episode started more than 1 year ago. The problem is unchanged. The problem is controlled. Pertinent negatives include no chest pain, headaches, neck pain, palpitations or shortness of breath. Risk factors for coronary artery disease include family history, obesity and sedentary lifestyle. Review of Systems Constitutional: Negative. Respiratory: Negative. Negative for shortness of breath. Cardiovascular: Negative for chest pain and palpitations. Gastrointestinal: Negative. Genitourinary: Negative. Musculoskeletal: Negative for neck pain. Neurological: Negative for headaches. Objective Physical Exam Constitutional: Appearance: Normal appearance. Priyanka is obese. HENT: Head: Normocephalic and atraumatic. Right Ear: Tympanic membrane normal. Left Ear: Tympanic membrane normal. Mouth/Throat: Mouth: Mucous membranes are moist. Eyes: Pupils: Pupils are equal, round, and reactive to light. Cardiovascular: Rate and Rhythm: Normal rate and regular rhythm. Pulmonary: Effort: Pulmonary effort is normal. Breath sounds: Normal breath sounds. Abdominal: General: Abdomen is flat. Palpations: Abdomen is soft. Musculoskeletal: General: Normal range of motion. Cervical back: Normal range of motion. Lumbar back: No spasms or tenderness. Skin: General: Skin is warm. Neurological: Mental Status: Priyanka is alert. Assessment/Plan Diagnoses and all orders for this visit: Primary hypertension Comments: Advised to avoid salt in food No changes in meds Maintain a low-sodium diet (less than 2 grams per day). Maintain a regular cardiovascular exercise program. Advised to maintain a low-fat, low-cholesterol diet. Counseled regarding importance of weight loss. Counseled re: potential co-morbidities including cardiovascular disease. Orders: - Basic Metabolic Panel; Future - Lipid Panel, Standard; Future - Hepatic Function Panel; Future Hypercholesterolemia Comments: Stable on Fish oil Labs ordered today Advised to maintain a low-fat, low-cholesterol diet. Counseled regarding importance of weight loss. Orders: - Lipid Panel, Standard; Future - Hepatic Function Panel; Future - TSH with Reflex to Free T4; Future Hep C w/o coma, chronic (CMS/HCC) Comments: Finished treatment Labs to be repeated H/O transfusion of whole blood - Hepatitis C Antibody with Reflex to HCV, RNA, Quantitative, Real-Time PCR; Future Encounter for screening for malignant neoplasm of colon - Referral to Gastroenterology; Future Encounter for screening mammogram for breast cancer - BI Mammogram Screening Tomosynthesis Bilateral; Future documented in this encounter Plan of Treatment Upcoming Encounters Date Type Department Care Team (Late st Contact Info) Description 08/13/2024 10:00 AM EDT Clinical Support [facility] MED & PEDS [address] [place] [id number] Scheduled Orders Name Type Priority Associated Diagnoses Orde r Schedule Basic Metabolic Panel Lab Routine Primary hypertension Expected: 06/07/2024 (Approximate), Expires: 06/07/2025 Lipid Panel, Standard Lab Routine Primary hypertension Hypercholesterolemia Expected: 06/07/2024 (Approximate), Expires: 06/07/2025 Hepatic Function Panel Lab Routine Primary hypertension Hypercholesterolemia Expected: 06/07/2024 (Approximate), Expires: 06/07/2025 TSH with Reflex to Free T4 Lab Routine Hypercholesterolemia Expected: 06/07/2024 (Approximate), Expires: 06/07/2025 Hepatitis C Antibody with Reflex to HCV, RNA, Quantitative, Real-Time PCR Lab Routine H/O transfusion of whole blood Expected: 06/07/2024, Expires: 06/07/2025 BI Mammogram Screening Tomosynthesis Bilateral Imaging Routine Encounter for screening mammogram for breast cancer Expected: 06/07/2024, Expires: 08/07/2025 Scheduled Referrals Name Type Priority Associated Diagnoses Order Schedule Referral to Gastroenterology Outpatient Referral Routine Encounter for screening for malignant neoplasm of colon Expected: 06/07/2024 (Approximate), Expires: 06/07/2025 documented as of this encounter Visit Diagnoses Diagnosis Primary hypertension- Primary Unspecified essential hypertension Hypercholesterolemia Pure hypercholesterolemia Hep C w/o coma, chronic (CMS/HCC) Chronic hepatitis C without mention of hepatic coma H/O transfusion of whole blood Encounter for screening for malignant neoplasm of colon Encounter for screening mammogram for breast cancer documented in this encounter Care Teams Commercial Makeup Artist Relationship Specialty Start Date End Date Kellen Murcia MD [address] [place] [id number] PCP - General Family Medicine 02/07/18 documented as of this encounter
--- OUTSIDE RECORDS SUMMARY | 2024-06-07 10:57 | XMS_ITS | Encounter Summary ---
Author Organization [employer] Address [address] [address] [facility] [address] [place] [address] Care Team Providers Care Child Psychiatrist Name Role Phone Kellen Murcia MD Primary Care Provider [phone] Encounter Details Date Type Department Care Team (Latest Contact Info) Description 06/07/2024 Travel Social History Tobacco Use Types Packs/Day Years [...] Description 08/13/2024 10:00 AM EDT Clinical Support [facility] MED & PEDS [address] [place] [address] documented as of this encounter Visit Diagnoses Not on filedocumented in this encounter Care Teams Child Psychiatrist Relationship Specialty Start Date End Date Kellen Murcia MD [address] [place] [address] PCP - General Family Medicine 02/07/18 documented as of this encounter
[2024-06-07 14:57] LABS: ~HepC Num1 14.48 S/CO (0.00-0.79); ~Hepatitis C Antibody Reactive (Nonreactive)
[2024-06-07 14:59] LABS: Alanine Aminotransferase 29 U/L (0-31); Albumin Level 4.3 g/dL (3.5-5.0); Alkaline Phosphatase 55 U/L (39-117); Anion Gap 11 (12-20); Aspartate Amino Transferase 30 U/L (5-31); Bilirubin Direct 0.2 mg/dL (0.0-0.5); Bilirubin Total 0.6 mg/dL (0.0-1.0); Blood Urea Nitrogen 16 mg/dL (9-16); Calcium 9.5 mg/dL (8.4-10.2); Carbon Dioxide 26 mmol/L (22-29); Chloride 106 mmol/L (96-108); Cholesterol 233 mg/dL (<200); Estimated Glomerular Filt Rate > 60; Glucose Random 107 mg/dL (60-115); HDL Cholesterol 62 mg/dL (>40); LDL Cholesterol Calculated 152 mg/dL (<100); Potassium 4.3 mmol/L (3.3-5.1); Sodium 139 mmol/L (135-145); Total Protein 7.5 g/dL (6.5-8.0); Triglycerides 97 mg/dL (<150)
[2024-06-07 15:03] LABS: TSH reflex Free T4 1.19 uIU/mL (0.32-4.0)
[2024-06-09 11:18] LABS: HCV Log PCR <1.18 NOT DETECTED Log IU/mL (NOT DETECTED); HepC Viral Load <15 NOT DETECTED IU/mL (NOT DETECTED)
== END 2024-06-07 09:50 | disposition home or self-care (01) ==
LOC: HO.CHCLDS 09:49
PROVIDERS: Visit Provider Student in an Organized Health Care Education/Training Program
DX: I10 Essential (primary) hypertension (principal); E78.00 Pure hypercholesterolemia, unspecified; Z92.89 Personal history of other medical treatment
CPT/HCPCS: 36415; 80048; 80061; 80076; 84443; 86803; 87522

== ENCOUNTER 2024-08-06 08:22 | Outpatient (REF) | payer MEDICARE, MEDICAID, SELFPAY ==
--- OUTSIDE RECORDS SUMMARY | 2024-08-06 08:30 | XMS_ITS | Patient Health Record ---
Author Organization [facility] Address [address] [place] [id number] Care Team Providers Care Parlor Maid Name Role Phone JIMMIENICK Primary Care Provider Noé Rojo Jr Allergies No Known Allergies Reason For Referral No Information Medications Medication SIG (Take, Route, Fr equency, Duration) Notes Start Date End Date Status Lisinopril 40 MG 1 tablet Orally Once a day Active Vitamin B12 Active Aspir-81 Active Vitamin D3 W/K2 Active Social History Tobacco Use: Social History Observation Description Date Details (start date - stop date) Never Smoker NA - NA Tobacco Use/Smoking Question Answer Notes Patient is a nonsmoker Alcohol Screen Question Answer Notes Did you have a drink containing alcohol in the p ast year? No Points 0 Interpretation Negative Problems Problem Type SNOMED Code ICD Code Onset Dates Problem Status W/U Status Risk Notes Problem 292841686 Colon cancer screening (Z12.11) Active confirmed Problem 60454084 Constipation, unspecified constipation type (K59.00) Active confirmed Vital Signs Blood pressure diastolic 77 mm Hg 07/12/2024 Height 60 in 07/12/2024 Blood pressure systolic 111 mm Hg 07/12/2024 Weight 181 lbs 07/12/2024 BMI 35.35 kg/m2 07/12/2024 Encounters Encounter Location Date Provider Diagnosis [facility] [address] [place] [id number] 07/12/2024 Noé Terrell Jr Encounter for screening for malignant neoplasm of colon Z12.11 Assessments Encounter Date Diagnosis (ICD Code) Assessment Notes Treatment Notes Treatment Clinical Notes Section Notes 07/12/2024 Encounter for screening for malignant neoplasm of colon (ICD-10 - Z12.11) We discussed colon cancer screening today. We discussed risks and benefits of the procedure today. She will be due in 3 years. We will send her a reminder note at that time. She does not wish to proceed with colon cancer screening now as she is not due and has no symptoms. Plan Of Treatment Future Test Test Name Order Date COLONOSCOPY 10/14/2017 Insurance Providers Payer Name Payer Address Payer Phone Subscriber Number Group Number Insured Name Patient Relationship to Insured Coverage Start Date Coverage End Date MEDICARE OF [place] [address] [place] [id number] JEWELL ODEN Self - patient is the insured 4 [employer]ID OF [facility] [address] [place] [phone] [id number] JEWELL ODEN Self - patient is the insured Medical (General) History Medical History History ICD Code hypertension elevated cholesterol Colonoscopy 12/25, benign polyps, 10-yea r follow-up
== END 2024-08-06 08:23 | disposition home or self-care (01) ==
LOC: HO.MAMMO 08:22
PROVIDERS: PCP Student in an Organized Health Care Education/Training Program; Visit Provider Student in an Organized Health Care Education/Training Program
DX: Z12.31 Encounter for screening mammogram for malignant neoplasm of breast (principal)
CPT/HCPCS: 77063; 77067

== ENCOUNTER → 2024-08-06 08:45 | Outpatient (BNV) | payer MEDICARE, MEDICAID, SELFPAY | PROVIDERS: PCP Student in an Organized Health Care Education/Training Program; Visit Provider Internal Medicine | DX: Z12.31 Encounter for screening mammogram for malignant neoplasm of breast (principal) | CPT/HCPCS: 77063; 77067 ==